=== PATIENT | female | born 1995 | race Caucasian/White ===

== ENCOUNTER 2017-12-17 19:17 | Emergency (ER) | payer OTHER, MEDICAID ==
[~2017-12-17] VITALS: Ht 175.3 cm; Wt 73.6 kg
[2017-12-17 19:18] VITALS: BP 128/83
[2017-12-17 19:50] LABS: BASOPHILS # (AUTO) 0.1 X10'3 (0-0.2); BASOPHILS % (AUTO) 0.7 % (0-1); EOSINOPHILS # (AUTO) 0.2 X10'3 (0-0.9); EOSINOPHILS % (AUTO) 2.3 % (0-6); HEMATOCRIT 38.9 % (35.0-45.0); HEMOGLOBIN 13.5 g/dl (12.0-16.0); LYMPHOCYTES # (AUTO) 2.7 X10'3 (1.1-4.8); LYMPHOCYTES % (AUTO) 24.5 % (21-51); MEAN CORPUSCULAR HEMOGLOBIN 30.3 PG (27.0-31.0); MEAN CORPUSCULAR HGB CONC 34.8 % (33.0-36.5); MEAN CORPUSCULAR VOLUME 87.3 FL (78-98); MEAN PLATELET VOLUME 8.1 FL (7.4-10.4); MONOCYTES # (AUTO) 0.7 X10'3 (0-0.9); MONOCYTES % (AUTO) 6.5 % (2-12); NEUTROPHILS # (AUTO) 7.2 X10'3 (1.8-7.7); PLATELET COUNT 325 X10'3 (140-440); RED BLOOD COUNT 4.46 X10'6 (4.20-5.60); RED CELL DISTRIBUTION WIDTH 12.9 % (11.5-14.5); WHITE BLOOD COUNT 10.9 X10'3 (4.5-11.0)
[2017-12-17] MEDS ORDERED: proCHLORperazine 10 MG/2 ml inj IM ONE (19:50)
[2017-12-17 20:02] LABS: BETA HCG,QUANTITATIVE 238 mIU/ml
[2017-12-17 20:09] LABS: URINE HCG POSITIVE (NEG)
[2017-12-17 20:10] LABS: CLARITY,URINE CLEAR (Clear); COLOR,URINE YELLOW (Yellow); GLUCOSE, URINE NEGATIVE (Neg); KETONES,URINE TRACE mg/dl (Neg); LEUKOCYTE ESTERASE ,URINE NEGATIVE (Neg); NITRITES, URINE NEGATIVE (Neg); OCCULT BLOOD,URINE NEGATIVE (Neg); PH,URINE 5.5 (4.8-8.0); PROTEIN,URINE NEGATIVE (Neg); UROBILINOGEN,URINE 0.2 E.U/dL (0.2-1.0)
[2017-12-17 20:22] LABS: UA COLLECTION TYPE CLN CATCH MIDSTREAM
[2017-12-17 20:49] LABS: RHEUM FACTOR QUAL REFLEX TITER NEGATIVE (Neg)
[2017-12-17 21:03] LABS: ALANINE AMINOTRANSFERASE 17 U/L (12-78); ALBUMIN 4.1 G/DL (3.4-5.0); ALBUMIN/GLOBULIN RATIO 1.1 (1.1-1.5); ALKALINE PHOSPHATASE 57 IU/L (46-116); ANION GAP 10 (8-16); ASPARTATE AMINO TRANSFERASE 10 U/L (10-37); BILIRUBIN,TOTAL 0.3 MG/DL (0.1-1.0); BLOOD UREA NITROGEN 8 MG/DL (7-18); BUN/CREATININE RATIO 8.1 (6.6-38.0); CALCIUM 9.1 MG/DL (8.5-10.1); CHLORIDE 103 MMOL/L (99-107); CREATININE 0.99 MG/DL (0.40-0.90); GLUCOSE 72 MG/DL (70-104); POTASSIUM 3.5 MMOL/L (3.5-5.1); SODIUM 138 MMOL/L (135-145); TOTAL CARBON DIOXIDE 25.3 MMOL/L (24-32); TOTAL PROTEIN 7.7 G/DL (6.4-8.2); eGFR 71 ML/MIN
== END 2017-12-17 21:31 | disposition home or self-care (01) ==
LOC: ER 19:17
DX: O03.9 Complete or unspecified spontaneous abortion without complication (principal); R10.84 Generalized abdominal pain; R11.2 Nausea with vomiting, unspecified; Z88.0 Allergy status to penicillin; Z91.018 Allergy to other foods; Z88.1 Allergy status to other antibiotic agents
CPT/HCPCS: 36415; 76856; 80053; 81003; 81025; 84702; 85025; 86430; 86900; 86901; 96372; 99285; J0780

== ENCOUNTER 2019-09-08 15:58 | Emergency (ER) | payer BC, OTHER ==
[~2019-09-08] VITALS: Ht 175.3 cm; Wt 81.9 kg
[2019-09-08 17:00] LABS: BASOPHILS # (AUTO) 0.1 X10'3 (0-0.2); BASOPHILS % (AUTO) 0.9 % (0-1); EOSINOPHILS # (AUTO) 0.1 X10'3 (0-0.9); EOSINOPHILS % (AUTO) 1.2 % (0-6); HEMATOCRIT 40.5 % (35.0-45.0); HEMOGLOBIN 13.6 g/dl (12.0-16.0); LYMPHOCYTES # (AUTO) 1.5 X10'3 (1.1-4.8); LYMPHOCYTES % (AUTO) 14.4 % (21-51); MEAN CORPUSCULAR HEMOGLOBIN 29.3 PG (27.0-31.0); MEAN CORPUSCULAR HGB CONC 33.6 g/dL (33.0-36.5); MEAN CORPUSCULAR VOLUME 87.2 FL (78-98); MEAN PLATELET VOLUME 7.8 FL (7.4-10.4); MONOCYTES # (AUTO) 0.6 X10'3 (0-0.9); MONOCYTES % (AUTO) 6.3 % (2-12); NEUTROPHILS # (AUTO) 7.9 X10'3 (1.8-7.7); NEUTROPHILS % (AUTO) 77.2 % (42-75); PLATELET COUNT 343 X10'3 (140-440); RED BLOOD COUNT 4.64 X10'6 (4.20-5.60); RED CELL DISTRIBUTION WIDTH 13.3 % (11.5-14.5); WHITE BLOOD COUNT 10.2 X10'3 (4.5-11.0)
[2019-09-08 17:17] LABS: ALANINE AMINOTRANSFERASE 15 U/L (12-78); ALBUMIN 4.1 G/DL (3.4-5.0); ALKALINE PHOSPHATASE 72 IU/L (46-116); AMYLASE 52 U/L (25-115); ANION GAP 7 (8-16); ASPARTATE AMINO TRANSFERASE 11 U/L (10-37); BILIRUBIN,TOTAL 0.4 MG/DL (0.1-1.0); BLOOD UREA NITROGEN 8 MG/DL (7-18); BUN/CREATININE RATIO 9.2 (6.6-38.0); CHLORIDE 105 MMOL/L (99-107); CREATININE 0.87 MG/DL (0.40-0.90); GLUCOSE 94 MG/DL (70-104); LIPASE 125 U/L (73-393); POTASSIUM 3.9 MMOL/L (3.5-5.1); SODIUM 140 MMOL/L (135-145); TOTAL CARBON DIOXIDE 27.7 MMOL/L (24-32); TOTAL PROTEIN 8.1 G/DL (6.4-8.2); eGFR 81 ML/MIN
--- NOTE | 2019-09-08 18:53 | NUR ---
PT WITH STABLE VS. NO FEVER. AWAITING ROOM. JUST PROVIDED UA. REPORTS PAIN TO HER LUQ THAT RADIATES TO HER MID BACK. STATES NO HISTORY OF SUCH SYMPTOMS OR ANY KIDNEY STONES OR UTI'S.
[2019-09-08 19:09] LABS: CLARITY,URINE CLEAR (Clear); COLOR,URINE YELLOW (Yellow); GLUCOSE, URINE NEGATIVE (Neg); KETONES,URINE NEGATIVE (Neg); LEUKOCYTE ESTERASE ,URINE NEGATIVE (Neg); NITRITES, URINE NEGATIVE (Neg); OCCULT BLOOD,URINE NEGATIVE (Neg); PROTEIN,URINE NEGATIVE (Neg); URINE HCG NEGATIVE (NEG)
[2019-09-08 19:10] LABS: UA COLLECTION TYPE CLN CATCH MIDSTREAM
[2019-09-08] MEDS ORDERED: acetaminophen 325mg tablet PO ONE (20:25)
[2019-09-08] MEDS ORDERED: ONDA8TAB6 PO (20:25)
[2019-09-08] MEDS ORDERED: MAGN296S68 PO (20:25)
[2019-09-08] MEDS ORDERED: bisacodyl 5mg tablet.DR PO ONE (20:25)
[2019-09-08] MEDS ORDERED: ketorolac trometh inj. 60 MG/2 ML VIAL IM ONE (20:25)
[2019-09-08] MEDS ORDERED: PROC-8 PO (20:46)
[2019-09-08 20:50] VITALS: BP 121/74
== END 2019-09-08 20:48 | disposition home or self-care (01) ==
LOC: ER 15:59
DX: R10.32 Left lower quadrant pain (principal); K59.00 Constipation, unspecified; R11.2 Nausea with vomiting, unspecified; Z88.0 Allergy status to penicillin; Z88.2 Allergy status to sulfonamides; Z88.8 Allergy status to other drugs, medicaments and biological substances; Z91.02 Food additives allergy status
CPT/HCPCS: 36415; 80053; 81003; 81025; 82150; 83690; 85025; 96372; 99283; J1885

== ENCOUNTER 2020-08-17 10:42 | Emergency (ER) | payer OTHER ==
[~2020-08-17] VITALS: Ht 175.3 cm; Wt 68.2 kg
[~2020-08-17 10:42] MED LIST: MAGN296S68 PO; ONDA8TAB6 PO; PROC-8 PO
[2020-08-17] MEDS ORDERED: acetaminophen 325mg tablet PO ONE (11:40)
[2020-08-17] MEDS ORDERED: ibuprofen tablet 400 MG TABLET PO ONE (11:40)
[2020-08-17 13:03] VITALS: BP 117/71
== END 2020-08-17 13:06 | disposition home or self-care (01) ==
LOC: ER 10:42
DX: J02.9 Acute pharyngitis, unspecified (principal); Z20.822 Contact with and (suspected) exposure to COVID-19; B34.9 Viral infection, unspecified; R05 Cough; R51.9 Headache, unspecified; Z88.8 Allergy status to other drugs, medicaments and biological substances; Z88.0 Allergy status to penicillin; Z88.2 Allergy status to sulfonamides; Z88.1 Allergy status to other antibiotic agents; Z79.899 Other long term (current) drug therapy
CPT/HCPCS: 87077; 87081; 87635; 87880; 93005; 99284; C9803